=== PATIENT | female | born 1950 | race Caucasian/White ===

== ENCOUNTER 2022-12-11 14:24 | Outpatient (CLI) | payer OTHER, SELFPAY ==
--- NOTE | 2022-12-23 12:48 | ONC.NURNOTE ---
Received referral from PCP for thrombocytopenia. Reviewed with collateral specialist after confirming that PCP has no other labs between 2021 and 12/11/2022. Per Dr. Mehta patient will need to have CBC with peripheral smear and splenic ultrasound. LM with clinic to have these ordered, once they are scheduled publications writer will put patient on hematology schedule.
== END 2022-12-11 14:25 | disposition home or self-care (01) ==
PROVIDERS: PCP Physician Assistant Medical; Visit Provider Physician Assistant Medical
DX: E66.09 Other obesity due to excess calories (principal); M16.11 Unilateral primary osteoarthritis, right hip; R79.89 Other specified abnormal findings of blood chemistry; D69.6 Thrombocytopenia, unspecified; E67.3 Hypervitaminosis D; M17.0 Bilateral primary osteoarthritis of knee
CPT/HCPCS: 80053; 82306; 82607; 84439; 84443

== ENCOUNTER 2023-01-15 13:36 | Outpatient (CLI) | payer OTHER, SELFPAY ==
--- NOTE | 2023-01-15 14:00 | CRLHL7_ITS ---
For Patients: As a result of the Century Cures Act, medical imaging exams and procedure reports are released immediately into your electronic medical record. You may view this report before your referring provider. If you have questions, please contact your health care provider. Indication: Thrombocytopenia. Technique: Ultrasound examination of the spleen is performed using a sector scanner. Comparison: None available Findings: Spleen is normal in size and appearance. It measures 9.9 x 4.7 x 9.8 centimeters with no sign of any mass. There is no sign of ascites. Impression: Normal size and appearance of the spleen. Dictated by Yordy Cazares MD @ 01/19/2023 11:08:18 AM (Electronically Signed)
== END 2023-01-15 13:37 | disposition home or self-care (01) ==
LOC: US 13:37
PROVIDERS: PCP Physician Assistant Medical; Visit Provider Physician Assistant Medical
DX: D69.6 Thrombocytopenia, unspecified (principal)
CPT/HCPCS: 76705

== ENCOUNTER 2023-04-09 09:45 | Outpatient (CLI) | payer OTHER, SELFPAY ==
[2023-04-09 09:54] VITALS: BP 127/70; PULSE 57; RESP 16; TEMP 36.6; O2SAT 96; BMI 37.9
[2023-04-09 10:25] VITALS: BP 97/59; PULSE 55; RESP 16; O2SAT 92
--- NOTE | 2023-04-09 10:30 | W.ANESCHARGE ---
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
[2023-04-09 10:36] VITALS: BP 122/79; PULSE 55; RESP 16; O2SAT 93
[2023-04-09 10:38] LABS: Basophils Absolute Auto 0.01 K/uL (0.00-0.30); Basophils Percent Auto 0.2 % (0.0-3.0); Eosinophils Absolute Auto 0.12 K/uL (0.00-0.50); Eosinophils Percent Auto 2.6 % (0.0-7.0); Hematocrit 39.7 % (33.0-51.0); Hemoglobin* 12.5 gm/dL (12.0-16.0); Immature Reticulocyte Fraction 5.9 % (3.0-15.9); Lymphocytes Absolute Auto 1.05 K/uL (0.90-2.90); Lymphocytes Percent Auto 22.8 % (20-44); Mean Corpuscular HGB Conc 32 gm/dL (32-36); Mean Corpuscular Hemoglobin 29 pg (26-34); Mean Corpuscular Volume 91 fL (80-100); Monocytes Percent Auto 8.3 % (0.0-11.0); Neutrophils Absolute Auto 3.04 K/uL (1.7-7.0); Neutrophils Percent Auto 66.1 % (42.0-72.0); RDW Coefficient of Variation % 15.2 % (11.5-15.5); Red Blood Count 4.38 m/uL (4.00-5.20); Reticulocyte Hemoglobin Equivi 29.7 pg (29.0-35.0); Reticulocyte Percent 1.9 % (0.5-2.0); Reticulocytes Absolute 0.08 # (0.03-0.08)
[2023-04-09 10:43] LABS: Platelet Count* 45 K/uL (140-440); Slide Review Reflex No
--- NOTE | 2023-04-09 10:47 | W.ANESCHARGE ---
Anesthesia Charges Start Date/Time Anesthesia Start Date: 04/09/23 Anesthesia Start Time: 10:08 Stop Date/Time Anesthesia Stop Date: 04/09/23 Anesthesia Stop Time: 10:26 Summary Extremes of Age - Over 70 or under 1: MDA
[2023-04-09 10:51] VITALS: BP 145/82; PULSE 49; RESP 16; O2SAT 95
== END 2023-04-09 10:57 | disposition home or self-care (01) ==
LOC: OP CLINIC 09:45
PROVIDERS: PCP Physician Assistant Medical; Visit Provider Internal Medicine Hematology & Oncology
DX: D69.6 Thrombocytopenia, unspecified (principal)
CPT/HCPCS: 01112; 36415; 38222; 85025; 85045; 88264; 88305; 88313; 88341; 88342; 88360; 99100; J1644; J2001; J2704

== ENCOUNTER 2023-05-04 11:30 | Outpatient (RCR) | payer OTHER, SELFPAY ==
--- NOTE | 2023-03-01 09:35 | PT.OPEX ---
PT [place] Out[facility] Eval PT [facility] Outpatient Eval Start: 03/01/23 08:42 Freq: Status: Active Protocol: Document 03/01/23 09:21 ASHELY (Rec: 03/01/23 09:35 KLV [id number]) E-signed By Ashly Diop, PT Physical Therapy Outpatient Evaluation Insurance Information Recert Due Date 05/26/23 Insurance Information/Comments Ismael Flores Medical Diagnosis Pre and post operative right ABRAHAM DOS 03/08/23 Treating Diagnosis Right hip pain, limited hip ROM, generalized LE weakness, antalgic gait Referring MD Lewis Subjective Subjective Marissa reports to PT with gradual and insidious onset of right hip pain. Started with B leg pain and low back pain which then localized to right hip pain. X-rays indicated significant OA of right hip. She has started using a SEC this winter d/t the severity of pain. Denies falls but having difficulty walking, standing, getting in/out of car, sleeping. She is scheduled to have R ABRAHAM by Dr. Lewis. This is her first joint replacement. She lives in a 1 level home ( with basement however does not use basement). Ramp to enter home. 2 daughters currently live with her and are able to assist as needed. She has a walk-in shower with grab bars and bench as well as toilet jewelry sorter. Has a 4WW to use post-surgery. She does not drive. PMH: insomnia, osteoporosis, obesity, thrombocytopenia Pain Comments Date of Last Physician Visit 01/18/23 Current Work Status Retired Precautions Therapy Limitations/Systems Review Not Limited Objective Other/Pertinent Objective Gait: initially utilizing SEC in R UE, Limited stance time R LE, decreased stride length R LE Diffuse groin pain R SL balance: unable R, 3-4 sec L SLR: unable d/t pain Dermatome: intact to light touch throughout B LE Limited hip PROM all directions: empty end feel d/t pain Functional Test Performed & Score LEFS pre-operative: Assessment Assessment/Impression Marissa is a 73 year old female presenting to PT for preparation of upcoming R ABRAHAM DOS 03/08/23 d/t end stage OA. Session focused on education of anterior hip precautions, post-operative fall prevention precautions, transfers, gait with AD, post-operative exercises. She is able to verbalize precautions and demonstrated independence with exercises, gait. She is appropriate to proceed with surgery at this time. Primary Functional Limitations Walking, standing, sleeping, car transfers Plan of Care Rehabilitation Potential Good Physical Therapy Goals By end of session today, patient will...goals MET Demonstrate appropriate gait pattern with FWW to utilize post surgery for optimal safety when ambulating Demonstrate ability to negotiate stairs using appropriate stair pattern post surgery for optimal safety when at home and in community Verbalize understanding of most appropriate home set up including needed equipment for optimal safety and recovery post surgery Be independent in HEP program to show ability to perform appropriate exercises post surgery Treatment Plan/Direct Interventions Gait Training,Ice/Cold/ Vasopneumatic,Joint Mobilization,Manual Therapy, Neuromuscular Re-ed,Self-Care/ Home Management,Therapeutic Activities,Therapeutic Exercises Frequency/Duration Re-evaluate post-operatively Patient Will Be Discharged From Therapy Completion of LTG(s), Independent w/HEP, Independently Progressing Evaluation Billing Untimed Code Treatment Minutes 15 Complexity Low Certification Information Initial Certification Date 03/01/23 Ending Certification Date 05/26/23 Provider Signature Shows Agreement With POC & Medical Necessity Physician Signature & Date Requested Please Sign/Date Here Physician Comment/Change : Physician NPI Number #
== END 2023-09-01 23:59 | disposition home or self-care (01) ==
PROVIDERS: PCP Physician Assistant Medical; Referring Provider Physician Assistant Medical; Visit Provider Orthopaedic Surgery Sports Medicine
DX: M16.11 Unilateral primary osteoarthritis, right hip (principal); Z96.641 Presence of right artificial hip joint; Z51.89 Encounter for other specified aftercare
CPT/HCPCS: 97161; 97535; 99215; G0463

== ENCOUNTER 2023-06-14 14:38 | Outpatient (CLI) | payer OTHER, SELFPAY ==
--- NOTE | 2023-06-14 15:00 | US_ITS ---
Patient: DEE Muñoz FIELD Facility:?[facility] Patient ID:?[id number] Site Patient ID:?[id number]. Site :?[id number] Study:?US-Abdomen limited-06/14/2023 3:18:35 PM Ordering Physician:Hailey Pedraza Final Report: INDICATION: Liver cirrhosis COMPARISON: none TECHNIQUE: Real time holt scale imaging and color Doppler analysis was performed of the right upper quadrant. FINDINGS: No intrahepatic mass is present. The liver is not enlarged. There is a normal appearance of the hepatic IVC and proximal abdominal aorta. There is no evidence of ascites. The gallbladder is of normal size and there is no evidence of intraluminal stones or sludge. The gallbladder wall measures 1.7 mm in thickness. The common bile duct is of normal size and measures 2.6 mm in diameter at the level of the mark hepatis. The pancreas appears normal. There is no evidence of a stone or hydronephrosis within the right kidney. The right kidney measures 11.0 cm in length. IMPRESSION: No intrahepatic mass or ascites. Remainder unremarkable. Dictated by Clay Butler MD @ 06/14/2023 3:42:09 PM Signed by:?Clay Butler MD @06/14/2023 3:42:09 PM (Electronic Signature)
== END 2023-06-14 14:39 | disposition home or self-care (01) ==
PROVIDERS: PCP Physician Assistant Medical; Visit Provider Internal Medicine Hematology & Oncology
DX: K74.60 Unspecified cirrhosis of liver (principal)
CPT/HCPCS: 76705; 82306

== ENCOUNTER 2023-06-22 08:00 | Outpatient (RCR) | payer OTHER, SELFPAY ==
[2023-01-19 12:11] LABS: Basophils Absolute Auto 0.01 K/uL (0.00-0.30); Basophils Percent Auto 0.2 % (0.0-3.0); Eosinophils Absolute Auto 0.12 K/uL (0.00-0.50); Eosinophils Percent Auto 2.5 % (0.0-7.0); Hematocrit 37.6 % (33.0-51.0); Hemoglobin* 11.6 gm/dL (12.0-16.0); Immature Reticulocyte Fraction 3.6 % (3.0-15.9); Lymphocytes Absolute Auto 1.25 K/uL (0.90-2.90); Lymphocytes Percent Auto 26.3 % (20-44); Mean Corpuscular HGB Conc 31 gm/dL (32-36); Mean Corpuscular Hemoglobin 29 pg (26-34); Mean Corpuscular Volume 94 fL (80-100); Monocytes Percent Auto 7.4 % (0.0-11.0); Neutrophils Absolute Auto 3.03 K/uL (1.7-7.0); Neutrophils Percent Auto 63.6 % (42.0-72.0); Platelet Count* 54 K/uL (140-440); RDW Coefficient of Variation % 12.3 % (11.5-15.5); Reticulocyte Hemoglobin Equivi 27.7 pg (29.0-35.0); Reticulocyte Percent 0.7 % (0.5-2.0); Reticulocytes Absolute 0.03 # (0.03-0.08); White Blood Count* 4.76 K/uL (4.50-11.00)
[2023-01-19 12:20] LABS: Slide Review Reflex No
[2023-01-19 12:22] LABS: Albumin* 4.3 g/dL (3.3-5.0); Chloride* 103 mmol/L (96-114)
[2023-01-19 12:23] LABS: Potassium* 4.7 mmol/L (3.6-5.1); Sodium* 137 mmol/L (135-149)
[2023-01-19 12:25] LABS: Alkaline Phosphatase* 77 U/L (40-150); Anion Gap 6 mEq/L (7-15); Aspartate Amino Transferase* 25 U/L (12-35); Bilirubin Total* 0.5 mg/dL (0.1-1.5); Blood Urea Nitrogen* 15 mg/dL (7-30); Carbon Dioxide* 28 mmol/L (20-32); Creatinine* 0.7 mg/dL (0.5-1.5); Estimated Glomerular Filt Rate 92 ml/min; Lactate Dehydrogenase* 208 U/L (120-246); Total Protein* 7.2 g/dL (6.0-8.3)
[2023-01-19 12:26] LABS: Alanine Aminotransferase* 15 U/L (4-35); Calcium* 9.2 mg/dL (8.4-10.6); Glucose* 90 mg/dL (60-115)
[2023-01-19 12:29] LABS: Iron* 55 ug/dL (37-170)
[2023-01-19 12:38] LABS: Percent Iron Saturation 14 % (20-50); Total Iron Binding Capacity 390 ug/dL (265-497)
[2023-01-19 13:02] LABS: Hepatitis B Surface Antigen* Negative (Negative)
[2023-01-19 13:15] LABS: Vitamin B12* 323 pg/mL (243-894)
[2023-01-19 13:20] LABS: Hepatitis C Virus Antibody* Negative (Negative)
[2023-01-19 13:22] LABS: HIV 1/2/P24 Combo Screen* Negative (Negative)
[2023-01-20 18:54] LABS: Hepatitis B Core Antibodies Negative (Negative)
[2023-01-21 05:57] LABS: Copper, Serum/Plasma 124.5 ug/dL (80.0-155.0)
[2023-01-21 07:50] LABS: Folate, Serum 11.2 ng/mL (>=5.9)
[2023-03-02 14:26] LABS: Basophils Absolute Auto 0.01 K/uL (0.00-0.30); Basophils Percent Auto 0.2 % (0.0-3.0); Eosinophils Absolute Auto 0.16 K/uL (0.00-0.50); Eosinophils Percent Auto 2.8 % (0.0-7.0); Hematocrit 36.1 % (33.0-51.0); Hemoglobin* 11.4 gm/dL (12.0-16.0); Immature Granulocytes Abs Auto 0.01 K/uL (0.00-0.30); Immature Granulocytes Pct Auto 0.2 %; Lymphocytes Absolute Auto 1.17 K/uL (0.90-2.90); Lymphocytes Percent Auto 20.4 % (20-44); Mean Corpuscular HGB Conc 32 gm/dL (32-36); Mean Corpuscular Hemoglobin 28 pg (26-34); Mean Corpuscular Volume 89 fL (80-100); Monocytes Percent Auto 6.4 % (0.0-11.0); Neutrophils Absolute Auto 4.02 K/uL (1.7-7.0); RDW Coefficient of Variation % 12.9 % (11.5-15.5); Red Blood Count 4.04 m/uL (4.00-5.20); White Blood Count* 5.74 K/uL (4.50-11.00)
[2023-03-02 14:50] LABS: Platelet Count* 45 K/uL (140-440); Slide Review Reflex Yes
[2023-03-02 14:51] LABS: Slide Review Acceptable Review (Acceptable)
[2023-04-05 09:43] LABS: Basophils Absolute Auto 0.02 K/uL (0.00-0.30); Basophils Percent Auto 0.4 % (0.0-3.0); Eosinophils Absolute Auto 0.14 K/uL (0.00-0.50); Eosinophils Percent Auto 2.8 % (0.0-7.0); Hematocrit 37.2 % (33.0-51.0); Hemoglobin* 11.9 gm/dL (12.0-16.0); Lymphocytes Absolute Auto 1.07 K/uL (0.90-2.90); Lymphocytes Percent Auto 21.5 % (20-44); Mean Corpuscular HGB Conc 32 gm/dL (32-36); Mean Corpuscular Hemoglobin 29 pg (26-34); Mean Corpuscular Volume 90 fL (80-100); Monocytes Percent Auto 8.4 % (0.0-11.0); Neutrophils Absolute Auto 3.33 K/uL (1.7-7.0); Neutrophils Percent Auto 66.9 % (42.0-72.0); RDW Coefficient of Variation % 14.8 % (11.5-15.5); Red Blood Count 4.15 m/uL (4.00-5.20); White Blood Count* 4.98 K/uL (4.50-11.00)
[2023-04-05 09:55] LABS: Platelet Count* 34 K/uL (140-440); Slide Review Reflex No
[2023-04-05] MEDS: CYANOCOBALAMIN 1,000 MCG/ML inj 1000 MCG IM (10:53)
[2023-04-16 11:39] VITALS: BP 102/66; PULSE 79; RESP 16; TEMP 36.7; O2SAT 95
[2023-04-16] MEDS: CYANOCOBALAMIN 1,000 MCG/ML inj 1000 MCG IM (11:50)
[2023-04-23 13:00] VITALS: BP 146/78; PULSE 60; RESP 16; TEMP 36.2; O2SAT 96
[2023-04-23] MEDS: CYANOCOBALAMIN 1,000 MCG/ML inj 1000 MCG IM (13:13)
[2023-04-30 12:46] VITALS: BP 103/69; PULSE 75; RESP 16; TEMP 37; O2SAT 95
[2023-04-30] MEDS: CYANOCOBALAMIN 1,000 MCG/ML inj 1000 MCG IM (12:57)
[2023-05-04 10:45] LABS: Basophils Percent Auto 0.2 % (0.0-3.0); Eosinophils Percent Auto 2.5 % (0.0-7.0); Hematocrit 38.5 % (33.0-51.0); Hemoglobin* 12.4 gm/dL (12.0-16.0); Lymphocytes Percent Auto 25.1 % (20-44); Mean Corpuscular HGB Conc 32 gm/dL (32-36); Mean Corpuscular Hemoglobin 29 pg (26-34); Mean Corpuscular Volume 91 fL (80-100); Monocytes Percent Auto 7.3 % (0.0-11.0); Neutrophils Percent Auto 64.9 % (42.0-72.0); RDW Coefficient of Variation % 14.4 % (11.5-15.5); Red Blood Count 4.24 m/uL (4.00-5.20); White Blood Count* 4.38 K/uL (4.50-11.00)
[2023-05-04 11:08] LABS: Platelet Count* 42 K/uL (140-440); Slide Review Reflex Yes
[2023-05-04 11:09] LABS: Slide Review Acceptable Review (Acceptable)
[2023-05-04] MEDS: CYANOCOBALAMIN 1,000 MCG/ML inj 1000 MCG IM (11:56)
--- NOTE | 2023-05-14 11:55 | URNOTE ---
[employer]([id number]) has been approved by [facility], 05/20/2023-02/15/2024. Approval #[id number]
[2023-05-20 08:45] VITALS: BP 122/80; PULSE 53; RESP 16; TEMP 36.7; O2SAT 96
[2023-05-20 08:47] LABS: Basophils Absolute Auto 0.01 K/uL (0.00-0.30); Basophils Percent Auto 0.2 % (0.0-3.0); Eosinophils Percent Auto 3.3 % (0.0-7.0); Hematocrit 40.1 % (33.0-51.0); Hemoglobin* 12.8 gm/dL (12.0-16.0); Immature Granulocytes Abs Auto 0.01 K/uL (0.00-0.30); Immature Granulocytes Pct Auto 0.2 %; Lymphocytes Percent Auto 19.8 % (20-44); Mean Corpuscular HGB Conc 32 gm/dL (32-36); Mean Corpuscular Hemoglobin 29 pg (26-34); Mean Corpuscular Volume 91 fL (80-100); Monocytes Percent Auto 6.9 % (0.0-11.0); Neutrophils Absolute Auto 4.27 K/uL (1.7-7.0); Neutrophils Percent Auto 69.6 % (42.0-72.0); Platelet Count* 58 K/uL (140-440); RDW Coefficient of Variation % 13.6 % (11.5-15.5); Red Blood Count 4.41 m/uL (4.00-5.20); White Blood Count* 6.12 K/uL (4.50-11.00)
[2023-05-20 08:54] LABS: Slide Review Reflex No
[2023-05-20] MEDS: SODIUM CHLORIDE 0.9 % (FLUSH) 10 ML SYRINGE IVF ×2 (09:30→14:55)
[2023-05-20] MEDS: 5 % DEXTROSE 250 ML IV (09:30)
[2023-05-20] MEDS: ACETAMINOPHEN 325 MG TABLET 650 MG PO (09:45)
[2023-05-20] MEDS: METHYLPREDNISOLONE SOD SUCC 40 MG/ML IVP (09:46)
[2023-05-20 10:26] VITALS: BP 117/78; PULSE 57; O2SAT 95
[2023-05-20] MEDS: diphenhydrAMINE 25 MG CAPSULE PO (10:30)
--- NOTE | 2023-05-20 11:35 | PC.NURSE ---
Pt present at [facility] for IVIG infusion. Premeds ordered per Corazon Cabrera APRN CLINICAL OPERATIONS SPECIALIST. Tylenol given orally. RN reviewed compatibilities on Clinical Pharmacology and noted incompatibilities. Stopped D5W, flushed with 10 cc NS and gave SoluMedrol IV push. Flushed with 10 cc NS. Started pushing IV Benadryl and noted precipitate. Stopped and pulled back. Discussed with Corazon Cabrera APRN and gave oral dose of Benadryl. Waited ~30 minutes before starting IVIG. With the 2nd dose on 05/20/2023, will give IV SoluMedrol and oral Tylenol & Benadryl.
[2023-05-21 08:35] VITALS: BP 130/83; PULSE 55; RESP 16; TEMP 36.8; O2SAT 96
[2023-05-21 09:04] LABS: Hematocrit 37.3 % (33.0-51.0); Mean Corpuscular HGB Conc 32 gm/dL (32-36); Mean Corpuscular Hemoglobin 29 pg (26-34); Mean Corpuscular Volume 91 fL (80-100); Platelet Count* 81 K/uL (140-440); Red Blood Count 4.12 m/uL (4.00-5.20)
[2023-05-21 09:12] LABS: Slide Review Reflex No
[2023-05-21] MEDS: ACETAMINOPHEN 325 MG TABLET 650 MG PO (09:29)
[2023-05-21] MEDS: diphenhydrAMINE 25 MG CAPSULE PO (09:29)
[2023-05-21] MEDS: SODIUM CHLORIDE 0.9 % (FLUSH) 10 ML SYRINGE IVF (09:30)
[2023-05-21] MEDS: 5 % DEXTROSE 250 ML IV (09:35)
[2023-05-21] MEDS: METHYLPREDNISOLONE SOD SUCC 40 MG/ML IVP (09:39)
--- NOTE | 2023-05-21 14:34 | PC.NURSE ---
Addendum entered by Tonie Velásquez RN 05/24/23 14:52: Spoke to orthopedic clinic-per the orthopedic clinic pt is scheduled for 06/23/23, pt was never scheduled for surgery on 05/24/23. Addendum entered by Tonie Velásquez RN 05/21/23 16:02: Aquiles ALBARADO pharmacy clinical specialist of [place]'s office called back stating orthopedics cancelled pt's surgery due to platelets of 81,000 this am. Aquiles will call pt and speak to [place] on Wednesday and contact the orthopedic office. Original Note: Pt present at [facility] for day 2 of IVIG infusion in preparation for surgery on Wednesday. Pt mentioned that she hadn't heard any check in time details from the surgery department. Reviewed pt's calendar and noted that her surgery is scheduled for 06/23/2023 NOT 05/24/2023 as all understood to be the plan. RN called the ortho department and got an on-call service as that clinic is closed for the day. RN then called to speak with a covering provider for Maria Fernanda Ríos PA-C as she is out. Transferred to [facility] and was told that there were no providers in clinic at this time. Spoke with PER Kwan the pharmacy clinical specialist, who took all of the above information. She will attempt to reach surgery to investigate further. Pt left [facility] as her daughter was here to pick her up. Will follow.
[2023-06-07 13:21] LABS: Basophils Percent Auto 0.2 % (0.0-3.0); Eosinophils Percent Auto 1.2 % (0.0-7.0); Hematocrit 39.7 % (33.0-51.0); Hemoglobin* 12.6 gm/dL (12.0-16.0); Lymphocytes Percent Auto 26.1 % (20-44); Mean Corpuscular HGB Conc 32 gm/dL (32-36); Mean Corpuscular Hemoglobin 29 pg (26-34); Mean Corpuscular Volume 92 fL (80-100); Monocytes Percent Auto 7.4 % (0.0-11.0); Neutrophils Percent Auto 65.1 % (42.0-72.0); Platelet Count* 121 K/uL (140-440); RDW Coefficient of Variation % 13.4 % (11.5-15.5); Red Blood Count 4.34 m/uL (4.00-5.20); White Blood Count* 4.03 K/uL (4.50-11.00)
[2023-06-07 13:29] LABS: Slide Review Reflex No
[2023-06-07] MEDS: CYANOCOBALAMIN 1,000 MCG/ML inj 1000 MCG IM (14:23)
[2023-06-18 09:17] LABS: Basophils Percent Auto 0.3 % (0.0-3.0); Eosinophils Percent Auto 2.7 % (0.0-7.0); Hematocrit 38.1 % (33.0-51.0); Hemoglobin* 12.4 gm/dL (12.0-16.0); Lymphocytes Percent Auto 30.6 % (20-44); Mean Corpuscular HGB Conc 33 gm/dL (32-36); Mean Corpuscular Hemoglobin 30 pg (26-34); Mean Corpuscular Volume 91 fL (80-100); Monocytes Percent Auto 8.4 % (0.0-11.0); Platelet Count* 99 K/uL (140-440); RDW Coefficient of Variation % 13.2 % (11.5-15.5); Red Blood Count 4.19 m/uL (4.00-5.20); White Blood Count* 3.33 K/uL (4.50-11.00)
[2023-06-18 09:29] LABS: Slide Review Reflex No
--- NOTE | 2023-06-18 11:42 | ONC.NURNOTE ---
Ortho clinic called and alerted to patients platelets being 99,000. MD wanted them at 100,000 so not sure if patient needs transfusion or not. Nurse stated he's out for day but will address on Wednesday. Patient also notified Will let Dr. Jo know on WednesdayJune 20 Surgery scheduled for June 22
[2023-06-22 07:44] VITALS: BP 102/70; PULSE 66; RESP 16; TEMP 36.5; O2SAT 97
[2023-06-22 08:14] VITALS: BP 102/70; PULSE 66; RESP 16; TEMP 36.3; O2SAT 97
[2023-06-22 08:33] VITALS: BP 109/73; PULSE 59; RESP 16; TEMP 36.4; O2SAT 95
[2023-06-22 09:18] VITALS: BP 108/70; PULSE 63; RESP 18; TEMP 36.4; O2SAT 94
[2023-06-22 10:38] VITALS: BP 118/80; PULSE 61; RESP 16; TEMP 36.5; O2SAT 95
[2023-06-22 11:06] VITALS: BP 121/79; PULSE 61; RESP 16; TEMP 36.4; O2SAT 96
[2023-06-22 12:42] LABS: Platelet Count* 110 K/uL (140-440)
== END 2023-07-18 23:59 | disposition home or self-care (01) ==
LOC: CCIC 08:00
PROVIDERS: Clinical Nurse Specialist; PCP Physician Assistant Medical; Referring Provider Physician Assistant Medical; Visit Provider Internal Medicine Hematology & Oncology
DX: D69.6 Thrombocytopenia, unspecified (principal)
CPT/HCPCS: 36415; 36430; 80053; 82525; 82607; 82728; 82746; 83540; 83550; 83615; 85025; 85027; 85045; 85049; 86703; 86704; 86803; 86850; 86900; 86901; 87340; 96365; 96366; 96372; 96376; 99202; 99204; 99213; 99214; G0463; A9270; J1200; J1459; J2919; J3420; J7050; P9073

== ENCOUNTER 2023-06-23 06:01 | Day surgery (SDC) | payer OTHER, SELFPAY ==
[2023-06-23] VITALS (25 sets, daily range): BP systolic 94–136; BP diastolic 56–95; PULSE 66–82; RESP 14–23; TEMP 35.9–36.7; O2SAT 92–100; BMI 35.9
[2023-06-23] MEDS: ACETAMINOPHEN 500 MG TABLET 1000 MG PO ×3 (06:30→19:09)
[2023-06-23] MEDS: OXYCODONE (CR) 10 MG TAB.ER.12H PO (06:30)
[2023-06-23] MEDS: LACTATED RINGERS 1000 ML 1,000 ML 100 ML IV (06:45)
--- NOTE | 2023-06-23 06:50 | W.PM.H&PU ---
History & Physical Update History & Physical Update H&P Updates: Platelet count measured yesterday (06/22/2023) of 110,000 is much improved from the 43,000 count a few months ago. She feels herself. No other changes.
--- NOTE | 2023-06-23 06:53 | XR_ITS ---
Patient: DEE Muñoz FIELD Facility:?[facility] Patient ID:?[id number] Site Patient ID:?[id number]. Site :?[id number] Study:?XRay-Hip Right post op-06/23/2023 10:17:49 AM Ordering Physician:VERA Final Report: INDICATION: Post right hip arthroplasty. TECHNIQUE: AP view of the pelvis as well as AP and lateral projections of the right hip. COMPARISON: : 06/21/2023 FINDINGS: Immediate postop change of right total hip arthroplasty. Prosthetic components well-seated and aligned. IMPRESSION: : Immediate postop right total hip arthroplasty without evidence of complication. Dictated by Javier Dawkins MD @ 06/24/2023 9:00:24 AM Signed by:?Javier Dawkins MD @06/24/2023 9:00:24 AM (Electronic Signature)
--- NOTE | 2023-06-23 06:58 | SUR.PREOP ---
TIME?OUT:?0700 PT/RN/MDA?VERIFICATION?OF?SURGICAL?SITE,?PROCEDURE,?AND?CONSENT OBTAINED?PRIOR?TO?INVASIVE?PROCEDURE.
[2023-06-23] MEDS: MIDAZOLAM HCL 1 MG/ML inj IVP (07:01)
[2023-06-23] MEDS: fentaNYL 100 MCG/2 ML inj IVP (07:01)
--- NOTE | 2023-06-23 07:15 | XR_ITS ---
Patient: DEE Muñoz FIELD Facility:?[facility] Patient ID:?[id number] Site Patient ID:?[id number]. Site :?1950 Study:?XRay-Hip Right With Luz-06/23/2023 9:17:08 AM Ordering Physician:Domi Final Report: Indication: Right ABRAHAM. Intraoperative fluoroscopy Technique: Intraoperative fluoroscopy. One image saved. Fluoro time: 52 seconds. Comparison: None. Findings/Impression: Image shows placement of a right hip arthroplasty in anatomic alignment. Dictated by Hang Argueta MD @ 06/24/2023 6:36:17 AM Signed by:?Hang Argueta MD @06/24/2023 6:36:17 AM (Electronic Signature)
[2023-06-23] MEDS: CEFAZOLIN 2 GM in 0.9 % SODIUM CHLORIDE Mini-bag 100 ML IVPB ×3 (07:28→21:22)
[2023-06-23] MEDS: TRANEXAMIC ACID 100 MG/ML INJ 1000 MG IV (07:38)
--- NOTE | 2023-06-23 09:12 | PM.ORPRC ---
Procedure Note Date of procedure: 06/23/23 Procedure: PREOPERATIVE DIAGNOSIS: 1. Right hip osteoarthritis, severe, primary POSTOPERATIVE DIAGNOSIS: 1. Right hip osteoarthritis, severe, primary PROCEDURE: 1. Right total hip arthroplasty-anterior approach 2. 66637 - intraoperative fluoroscopy up to 1 hour. SURGEON: Keaton Lewis MD. THERMAL INTELLIGENCE ANALYST: Jose Torres PA-C; ROSARIO Kruger - Of note, a skilled diet assistant was critical for this case to aid in patient positioning, tissue retraction, limb manipulation/positioning, and closure. ANESTHESIA: General endotracheal anesthetic EBL: 500 mL IMPLANTS: DePuy J&J uncemented total hip [place] cup size 52, hole eliminator, +4 neutral liner Actis stem, standard offset, size 6 +5 mm ceramic 36 mm head COMPLICATIONS: None evident INDICATIONS: The patient is a pleasant 73-year-old female who has experienced severe right hip pain and difficulty bearing weight. Workup included x-rays which revealed severe osteoarthrosis in the hip. Given the deformity, the dysfunction, and the pain, as well as the failure of nonoperative management, recommendation was made for surgery. FINDINGS: Full-thickness chondral loss diffusely throughout the femoral head and superior/central acetabulum. Large effusion upon entering the joint. Significant osteophytosis around the perimeter of the femoral head/neck junction and acetabulum. DESCRIPTION OF PROCEDURE: Following a thorough discussion of risks, benefits, and alternatives consent was obtained and the right hip was marked. The patient was brought to the operating room and placed supine on the operating table. Induction of anesthesia was undertaken. 2 g IV Ancef and 1 g tranexamic acid was administered within 1 hr of incision preoperatively. Proper time-out was performed identifying proper patient, site, procedure. The operative extremity was prepped and draped in the appropriate sterile fashion using ChloraPrep after the patient was positioned on the Bertrand table with head in neutral alignment and all bony prominences well padded. C-arm fluoroscopic imaging was utilized to confirm proper pelvis rotation and position, and to get true AP films of both the contralateral left, and the affected right hip. This is for comparison. A longitudinal incision was made starting approximately 1 cm distal to the ASIS, and 3-4 cm lateral. The incision was extended distally aiming toward the lateral border the patella. Sharp incision through skin and bovie cautery through the subcutaneous tissue allowed identification of the TFL fascia. This was sharply divided, and the fascia bluntly released from the muscle fibers as we dissected medial. Upon coming to the medial border, we were able to retract the TFL laterally, and penetrated the deeper fascia and identify the crossing circumflex vessels. These were ligated/cauterized. The rectus was elevated from the capsule, and retractors placed laterally and medially along the femoral neck to help with visualization of the capsule. We then performed an inverted T capsulotomy. The capsule was tagged for later repair. Retractors were placed inside the capsule. The femoral neck was visualized after releasing medially down to the lesser trochanter, along the saddle laterally, and up onto the acetabulum. The femoral neck cut was made in line with our preoperative templating. The head was removed in a single piece, and sized. We turned our attention to acetabular preparation. Initially, the labrum was resected from around the perimeter, the pulvinar was excised, allowing us to visualize the false wall. We started the reaming with a 43 mm reamer. This was medialized down to the true wall. We then enlarged our reamers sequentially up to one size less than the selected cup size. We trialed at the same size and found it to have an excellent fit. The selected cup was then opened, inserted, and impacted in line with the goal of 40? of abduction, and 20-25? of anteversion. This was confirmed on C-arm fluoroscopic imaging to be in the appropriate/goal position. Once the cup was placed we placed a hole eliminator and a liner consistent with preop planning. Attention was turned to the femoral preparation. The limb was extended, externally rotated, and adducted. The posteromedial capsule was released, as retractors were placed allowing excellent access to the proximal femur. Initially a dust box tender was followed by canal finder followed by various broaches. We broached sequentially up to the size noted above, found it to have excellent rotational control, and trialing various heads and necks, revealed that appropriate neck offset, and the above noted head size provided the greatest stability, and episcopalian of length, and offset. C-arm fluoroscopic imaging confirmed position of the stem, as well as leg lengths, which were compared with the pre procedure all fluoroscopic images. Trial implants were removed, the real femoral stem inserted, as was the appropriate head. After reducing, the leg was placed through range of motion and stability was confirmed anterior, posterior, and lateral. A 3 min Betadine soak was then performed, and thorough irrigation with normal saline followed. Closure of the capsule was performed with #1 PDS. Bleeding was confirmed to be controlled at this stage, and the TFL fascia was closed with #0 strata fix. Subcutaneous, and subcuticular closure was performed with 2-0 Vicryl and 4-0 Monocryl, respectively. Dressings were applied, and the patient was awoken from anesthesia and transferred the PACU in stable condition. A skilled diet assistant was critical for this case to aid in patient positioning, tissue retraction, acetabular and proximal femoral exposure, limb manipulation/positioning, dislocation/relocation, patient safety, and closure. PLAN: 1. Weight bear as tolerated operative extremity. 2. 23 hr perioperative antibiotics. 3. Ice. 4. PT/OT consults for ambulation assistance/mobility education. 5. Social work consult for discharge planning. 6. DVT prophylaxis with at SCDs and likely chemoprophylaxis but will discuss this with the hospitalist given thrombocytopenia (110,000 platelets as of labs from yesterday 06/22/2023).
--- NOTE | 2023-06-23 09:40 | W.PM.NB ---
Nerve Block Nerve Block Time Seen by Provider: 07:05 Date Seen: 06/23/23 Type of block requested by surgeon for post-operative analgesia: SIERRA/LFCN Side: right Time out performed: Yes Verification of patient name: Yes Verification of date of : Yes Site marking: site marked Name of person performing procedure: Milton Continuous monitoring Was continuous monitoring of O2 sat, B/P, potline monitor, recorded every 15 minutes?: Yes Procedure Checklist: sterile prep, needles and gloves Ultrasound guided. Images saved: Yes Medications given in 5ml increments after negative aspiration: Ropivicaine %: 0.5 mL: 30 Needle gauge: 20 Decadron (mg): 10 Precedex (mcg): 25 Patient tolerated procedure well: Yes Additional comments: Needle noted below psoas tendon needle noted adjacent to LFCN Block Charges Block Charge (with Pro Fee): Other Periph Nerve Block Use of Ultrasound Machine for Block: Yes- US Guidance/pain block
--- NOTE | 2023-06-23 09:40 | W.ANESCHARGE ---
Anesthesia Charges Start Date/Time Anesthesia Start Date: 06/23/23 Anesthesia Start Time: 07:11 Stop Date/Time Anesthesia Stop Date: 06/23/23 Anesthesia Stop Time: 10:01 Summary Extremes of Age - Over 70 or under 1: MDA
--- NOTE | 2023-06-23 10:08 | W.ANESCHARGE ---
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
--- NOTE | 2023-06-23 10:27 | SUR.PHASEI ---
Patient meets anesthesia discharge criteria from PACU
--- NOTE | 2023-06-23 10:34 | SUR.PHASEI ---
patient has shakes, offered medication to help with the shaking. Patient declined twice.
--- NOTE | 2023-06-23 15:12 | PC.NURSE ---
[End of Shift RN Note]: Patient arrived to unit post-operatively approximately at 10:45; patient had R) total hip replacement. Patient A&OX3; no cognitive deficits noted. Patient vitally stable post-operatively and pain adequately managed with scheduled medications per MAR. Patient has not voided yet post-operatively but has had poor appetite and has not had much PO fluid intake. Patient had jell-o to eat and tolerated well; declines tray from kitchen at this time. CMS intact to LLE. R) hip incision dressing C/D/I. Patient got out of bed with PT which pt tolerated well. Patient recovering as anticipated; no issues or concerns noted. Will continue to implement ongoing plan of care.
--- NOTE | 2023-06-23 15:31 | P.IMCN_ITS ---
Date of Consult Patient: [facility] Patient Consult date: 06/23/23 Requesting Physician: Orthopedics Primary Care Provider: Maria Fernanda Ríos PA-C Consult Narrative Reason for consult: Medical management Narrative: Marissa Sprague is a 73 year old female past medical history significant for chronic ITP, anemia, anxiety, depression, B12 deficiency, obesity, osteoarthritis is POD#0 s/p right ABRAHAM. There have been no perioperative complications or nursing concerns reported. Estimated total blood loss documented as 500 ml. Updated and reviewed the active medical problems, past medical history, past surgical history, social history, allergies and medications in our electronic EMR. Postoperatively, patient reports quite well. Pain is currently well managed. No nausea or vomiting, tolerating orals. Review of Systems Narrative: REVIEW OF SYSTEMS: Complete review of systems performed and negative unless otherwise stated in HPI or below. PFSH [facility] Medical History (Updated 06/23/23 @ 16:35 by Kaitlin Cameron PA-C) Liver cirrhosis ?K74.60 - Unspecified cirrhosis of liver (ICD-10) Anemia ?D64.9 - Anemia, unspecified (ICD-10) B12 deficiency ?E53.8 - Deficiency of other specified B group vitamins (ICD-10) Depression ?F32.A - Depression, unspecified (ICD-10) Thrombocytopenia ?D69.6 - Thrombocytopenia, unspecified (ICD-10) Anxiety with depression ?F41.8 - Other specified anxiety disorders (ICD-10) Arm pain ?M79.603 - Pain in arm, unspecified (ICD-10) Hand pain ?M79.643 - Pain in unspecified hand (ICD-10) Wrist pain ?M25.539 - Pain in unspecified wrist (ICD-10) Social History Narrative: What is your current living situation?: I presently have a place to live Problems where you live: no known problems In the past 12 months, utilities in danger of being shut off: no In past 12 months, lack of transportation kept you from medical appts, meetings, work, or getting things needed for daily living: no In the past 12 mos, have been you worried that your food would run out before you had money to buy more?: never true In the past 12 mos, the food you bought just didn't last and you didn't have money to buy more?: never true Smoking Status: Never smoker How often do you have a drink containing alcohol: never AUDIT-C Alcohol total score: 0 Non-prescribed substance use: denies use Caffeine: Yes How often does anyone, including family, friends and others, physically hurt you : never How often does anyone, including family, friends and others, insult or talk down to you: never How often does anyone, including family, friends and others, threaten you with harm: never How often does anyone, including family, friends and others, scream or curse at you: never Little interest or pleasure in doing things: not at all Feeling down, depressed, or hopeless: not at all Meds Home Medications and Allergies Home Medications Medication Instructions Recorded Confirmed Type calcium carbonate (Calcium 500) 500 mg PO DAILY 12/11/22 06/23/23 History acetaminophen 500 mg tablet 1,000 mg PO Q6H PRN 01/19/23 06/23/23 History (Tylenol Extra Strength) folic acid 1 mg tablet 1 mg PO DAILY 06/23/23 06/23/23 History mecobalamin (vitamin B12) 1,000 1,000 mcg sublingual DAILY 06/23/23 06/23/23 History mcg disintegrating tablet,sublingual trazodone 100 mg tablet 100 mg PO HS PRN insomnia 06/23/23 06/23/23 History Allergies Allergy/AdvReac Type Severity Reaction Status Date / Time No Known Drug Allergies Allergy Verified 06/22/23 08:07 Exam Narrative: Exam Narrative: PHYSICAL EXAM General: Pleasant, conversant, NAD HEENT: Normocephalic, atraumatic, sclera white, EOMI, oral mucosa moist Cardiovascular: RRR, S1S2. No pitting edema Pulmonary: CTA bilaterally without rhonchi, rales, expiratory wheezes. No dyspnea Abdominal: Soft, nondistended, NTTP Neurological: Alert, answering questions appropriately, cranial nerves intact, no focal findings Extremities: No gross joint deformity or swelling. Postoperative dressing in place, dry. Neurovascularly intact Skin: Warm, dry. Const: Vital Signs, click to edit/add: Vital Signs - 24 hr 06/23/23 06:31 06/23/23 07:00 06/23/23 07:05 Temperature 98.1 F Pulse Rate 66 70 68 Respiratory Rate 16 16 16 Blood Pressure 133/84 134/77 119/75 Pulse Oximetry 96 97 99 Oxygen Delivery Me thod Room Air Nasal Cannula Nasal Cannula Oxygen Flow Rate 3 3 06/23/23 09:56 06/23/23 10:00 06/23/23 10:05 Temperature 97.5 F L Pulse Rate 77 75 75 Respiratory Rate 16 14 16 Blood Pressure 136/85 132/77 131/95 H Pulse Oximetry 93 97 99 Oxygen Delivery Me thod Room Air Nasal Cannula Oxygen Flow Rate 3 06/23/23 10:10 06/23/23 10:15 06/23/23 10:20 Temperature Pulse Rate 74 75 77 Respiratory Rate 16 22 16 Blood Pressure 131/95 H 132/95 H 133/75 Pulse Oximetry 99 100 99 Oxygen Delivery Me thod Oxygen Flow Rate 06/23/23 10:25 06/23/23 10:30 06/23/23 10:42 Temperature 98.1 F 96.6 F L Pulse Rate 73 71 82 Respiratory Rate 16 23 14 Blood Pressure 129/72 118/73 128/75 Pulse Oximetry 96 94 93 Oxygen Delivery Me thod Room Air Room Air Room Air Oxygen Flow Rate 06/23/23 10:45 06/23/23 11:00 06/23/23 11:15 Temperature 96.6 F L 96.6 F L 96.6 F L Pulse Rate 74 69 70 Respiratory Rate 15 16 16 Blood Pressure 127/70 113/69 111/70 Pulse Oximetry 95 93 95 Oxygen Delivery Me thod Room Air Room Air Room Air Oxygen Flow Rate 06/23/23 11:30 06/23/23 12:00 06/23/23 12:30 Temperature 96.8 F L 96.9 F L 96.7 F L Pulse Rate 78 81 74 Respiratory Rate 16 16 16 Blood Pressure 111/64 96/63 97/64 Pulse Oximetry 94 94 93 Oxygen Delivery Me thod Room Air Room Air Room Air Oxygen Flow Rate 06/23/23 13:00 06/23/23 14:00 06/23/23 15:00 Temperature 96.8 F L 97.1 F L 97.0 F L Pulse Rate 73 75 73 Respiratory Rate 16 18 18 Blood Pressure 100/67 100/69 94/56 L Pulse Oximetry 93 95 94 Oxygen Delivery Me thod Room Air Room Air Room Air Oxygen Flow Rate Assessment and Plan Assessment and plan (1) Osteoarthritis of right hip: Problem comment: -POD#0 s/p rate ABRAHAM, anterior approach, Dr. Lewis -perioperative management including pain management and anticoagulation per Orthopedic surgery -encourage postoperative pulmonary hygiene -PT OT consults -plan to discharge home with family tomorrow Status: Acute (2) Chronic ITP (idiopathic thrombocytopenia): Problem comment: Platelets 110, recheck ordered for tomorrow morning postoperatively Anticoagulation per Orthopedic surgery. If DOAC, recommend recheck platelets with PCP 3-5 days Status: Acute (3) Anemia: Problem comment: History of, hgb 12.4 preoperatively. Recheck ordered for tomorrow morning postoperatively. Status: Acute Total Time Spent Total Time Spent: Total time spent caring for the patient today was 45 minutes. This includes time spent for the visit reviewing the chart, time spent during the visit, time spent after the visit and documentation and planning in coordination of care.
[2023-06-23] MEDS: SENNOSIDES 1 TAB TABLET 2 TAB PO (21:22)
--- NOTE | 2023-06-23 22:42 | PC.NURSE ---
End of shift [id number] - Pt alert, oriented, cooperative. Up to bathroom with standby assistance and walker/gait belt. Pt reported pain as 2/10 and indicated adequate management with medication from APR. Denies SOB, nausea, dizziness. Ice pack on surgical site, dressing CDI. Pedal pulse present. Pt contient of bladder. Tolerating RA, regular diet, fluids. Observed to sleep during shift, appears to be resting comfortably at end of shift.
[2023-06-24] MEDS: OXYCODONE 5 MG TABLET PO ×3 (00:35→09:27)
[2023-06-24] MEDS: ACETAMINOPHEN 500 MG TABLET 1000 MG PO ×2 (00:35→06:33)
[2023-06-24 03:00] VITALS: BP 124/74; PULSE 76; RESP 16; TEMP 36; O2SAT 92
--- NOTE | 2023-06-24 05:53 | PC.NURSE ---
[id number] Pt R hip dressing C/D/I, ice applied to site during night, tolerating PO intake, no n/v. Pain 6/10 at beginning of shift, prn oxy administered wtih scheduled tylenol, reassessment of pain pt rated 1/10. bilat pedal pulses present, pt ambulating with walker, GB, SBA, tolerating activity well.
[2023-06-24 06:54] LABS: Hematocrit 33.3 % (33.0-51.0); Hemoglobin* 10.8 gm/dL (12.0-16.0); Immature Granulocytes Abs Auto 0.02 K/uL (0.00-0.30); Immature Granulocytes Pct Auto 0.2 %; Lymphocytes Percent Auto 9.5 % (20-44); Mean Corpuscular HGB Conc 32 gm/dL (32-36); Mean Corpuscular Hemoglobin 30 pg (26-34); Mean Corpuscular Volume 92 fL (80-100); Monocytes Percent Auto 6.4 % (0.0-11.0); Neutrophils Percent Auto 83.9 % (42.0-72.0); Platelet Count* 93 K/uL (140-440); RDW Coefficient of Variation % 13.4 % (11.5-15.5); Red Blood Count 3.62 m/uL (4.00-5.20); White Blood Count* 8.91 K/uL (4.50-11.00)
[2023-06-24 07:00] VITALS: BP 103/55; PULSE 83; RESP 20; TEMP 36.2; O2SAT 96
[2023-06-24 07:03] LABS: Slide Review Reflex No
[2023-06-24 07:05] LABS: Potassium* 4.2 mmol/L (3.6-5.1); Sodium* 135 mmol/L (135-149)
[2023-06-24 07:08] LABS: Creatinine* 0.7 mg/dL (0.5-1.5); Est. Creatinine Clearance* 41.45; Estimated Glomerular Filt Rate 91 ml/min
[2023-06-24 07:09] LABS: Blood Urea Nitrogen* 18 mg/dL (7-30)
[2023-06-24] MEDS: CITALOPRAM HYDROBROMIDE 20 MG TABLET 40 MG PO (09:27)
[2023-06-24] MEDS: SENNOSIDES 1 TAB TABLET 2 TAB PO (09:27)
[2023-06-24] MEDS: RIVAROXABAN 10 MG TABLET PO (09:27)
--- NOTE | 2023-06-24 09:34 | PM.ORPN ---
Subjective Subjective Date Seen: 06/24/23 Principal diagnosis: Status postop day 1, right total hip arthroplasty - anterior approach Interval history: Patient reports doing well. No acute events over night. Pain managed with scheduled and PRN medications, ice. DVT prophylaxis: Rivaroxaban, bilateral knee high Bobby stockings, SCDs, walking. Denies fevers, chills, aches, N/V, CP, SOB/MORRIS, or lightheadedness. Ortho Exam Narrative Exam Narrative: -Patient appears comfortable sitting in bed, working with occupational therapy; no apparent acute distress -Alert and oriented times 3 -Operative hip swollen; soft tissues supple; no obvious erythema. Ecchymosis minimal. Warmth appropriate -Surgical dressing clean, dry, intact; no obvious drainage, no erythematous streaking peripheral to the bandage -Bilateral calves soft and supple; no significant swelling, edema, tenderness, erythema, discoloration, warmth, or palpable cords -2+ DP/PT pulses, intact dermatomes and myotomes distally (5/5 strength). No numbness about the lateral femoral cutaneous nerve distribution. Const Vital Signs, click to edit/add: Vital Signs - 24 hr 06/23/23 09:56 06/23/23 10:00 06/23/23 10:05 Temperature 97.5 F L Pulse Rate 77 75 75 Pulse Rate [Left Pulse Oximeter] Pulse Rate [Right Dorsalis Pedis] Respiratory Rate 16 14 16 Blood Pressure 136/85 132/77 131/95 H Blood Pressure [Right Arm] Pulse Oximetry 93 97 99 Oxygen Delivery Method Room Air Nasal Cannula Oxygen Flow Rate 3 06/23/23 10:10 06/23/23 10:15 06/23/23 10:20 Temperature Pulse Rate 74 75 77 Pulse Rate [Left Pulse Oximeter] Pulse Rate [Right Dorsalis Pedis] Respiratory Rate 16 22 16 Blood Pressure 131/95 H 132/95 H 133/75 Blood Pressure [Right Arm] Pulse Oximetry 99 100 99 Oxygen Delivery Method Oxygen Flow Rate 06/23/23 10:25 06/23/23 10:30 06/23/23 10:42 Temperature 98.1 F 96.6 F L Pulse Rate 73 71 82 Pulse Rate [Left Pulse Oximeter] Pulse Rate [Right Dorsalis Pedis] Respiratory Rate 16 23 14 Blood Pressure 129/72 118/73 128/75 Blood Pressure [Right Arm] Pulse Oximetry 96 94 93 Oxygen Delivery Method Room Air Room Air Room Air Oxygen Flow Rate 06/23/23 10:45 06/23/23 11:00 06/23/23 11:15 Temperature 96.6 F L 96.6 F L 96.6 F L Pulse Rate 74 69 70 Pulse Rate [Left Pulse Oximeter] Pulse Rate [Right Dorsalis Pedis] Respiratory Rate 15 16 16 Blood Pressure 127/70 113/69 111/70 Blood Pressure [Right Arm] Pulse Oximetry 95 93 95 Oxygen Delivery Method Room Air Room Air Room Air Oxygen Flow Rate 06/23/23 11:30 06/23/23 12:00 06/23/23 12:30 Temperature 96.8 F L 96.9 F L 96.7 F L Pulse Rate 78 81 74 Pulse Rate [Left Pulse Oximeter] Pulse Rate [Right Dorsalis Pedis] Respiratory Rate 16 16 16 Blood Pressure 111/64 96/63 97/64 Blood Pressure [Right Arm] Pulse Oximetry 94 94 93 Oxygen Delivery Method Room Air Room Air Room Air Oxygen Flow Rate 06/23/23 13:00 06/23/23 14:00 06/23/23 15:00 Temperature 96.8 F L 97.1 F L 97.0 F L Pulse Rate 73 75 73 Pulse Rate [Left Pulse Oximeter] Pulse Rate [Right Dorsalis Pedis] Respiratory Rate 16 18 18 Blood Pressure 100/67 100/69 94/56 L Blood Pressure [Right Arm] Pulse Oximetry 93 95 94 Oxygen Delivery Method Room Air Room Air Room Air Oxygen Flow Rate 06/23/23 16:00 06/23/23 17:00 06/23/23 21:36 Temperature 97.2 F L 97.1 F L Pulse Rate 77 Pulse Rate [Left Pulse Oximeter] 75 Pulse Rate [Right Dorsalis Pedis] Respiratory Rate 20 16 Blood Pressure 97/56 L 117/78 Blood Pressure [Right Arm] 113/67 Pulse Oximetry 92 93 Oxygen Delivery Method Room Air Room Air Oxygen Flow Rate 06/23/23 23:00 06/24/23 03:00 06/24/23 07:00 Temperature 96.8 F L 97.1 F L Pulse Rate Pulse Rate [Left Pulse Oximeter] 81 76 Pulse Rate [Right Dorsalis Pedis] 83 Respiratory Rate 16 16 20 Blood Pressure Blood Pressure [Right Arm] 115/64 124/74 103/55 L Pulse Oximetry 94 92 96 Oxygen Delivery Method Room Air Room Air Room Air Oxygen Flow Rate 0 0 06/24/23 07:00 Temperature Pulse Rate Pulse Rate [Left Pulse Oximeter] Pulse Rate [Right Dorsalis Pedis] 83 Respiratory Rate 20 Blood Pressure Blood Pressure [Right Arm] Pulse Oximetry Oxygen Delivery Method Oxygen Flow Rate Assessment and Plan Assessment and plan (1) Osteoarthritis of right hip: Problem details: -POD#1 s/p rate ABRAHAM, anterior approach, Dr. Lewis -perioperative management including pain management and anticoagulation per Orthopedic surgery -encourage postoperative pulmonary hygiene -PT OT consults -plan to discharge home with family tomorrow Status: Acute (2) Chronic ITP (idiopathic thrombocytopenia): Problem details: Platelets 110, recheck ordered for tomorrow morning postoperatively Anticoagulation per Orthopedic surgery. If DOAC, recommend recheck platelets with PCP 3-5 days Status: Acute (3) Anemia: Problem details: History of, hgb 12.4 preoperatively. Recheck ordered for tomorrow morning postoperatively. Status: Acute Plan - Complete 23 hour perioperative antibiotics. - PT/OT consult for education and assistance. - Social work consult for discharge planning - Prescribed analgesics as needed - DVT prophylaxis: Rivaroxaban followed by 25 days of 81 mg aspirin twice daily and SCDs - Anticipation is for discharge to home with family/friends 06/24/2023 if the patient remains medically stable, pain is controlled, and they are safe with mobilization.
== END 2023-06-24 12:36 | disposition home or self-care (01) ==
LOC: OR 06:02 → MEDSURG 06:04
PROVIDERS: PCP Physician Assistant Medical; Visit Provider Orthopaedic Surgery Sports Medicine
PROC: (CPT 27130; principal; 2023-06-23 07:15)
DX: M16.11 Unilateral primary osteoarthritis, right hip (principal); G89.18 Other acute postprocedural pain; D69.3 Immune thrombocytopenic purpura; E66.9 Obesity, unspecified; D51.9 Vitamin B12 deficiency anemia, unspecified; F41.8 Other specified anxiety disorders
CPT/HCPCS: 27130; 01214; 36415; 64450; 73501; 76000; 76942; 82565; 84132; 84295; 84520; 85025; 86850; 86900; 86901; 97110; 97116; 97161; 97165; 97530; 97535; 99100; A9270; C1713; C1776; J0690; J1100; J1630; J2250; J2405; J2704; J3010; J3475; J3490; J7120

== ENCOUNTER 2023-07-16 13:45 | Outpatient (RCR) | payer OTHER, SELFPAY ==
--- NOTE | 2023-07-09 14:31 | PT.OPEX ---
PT [facility] Outpatient Eval PT [facility] Outpatient Eval Start: 07/09/23 08:42 Freq: Status: Active Protocol: Document 07/09/23 08:45 ASHELY (Rec: 07/09/23 14:28 ASHELY [id number]) E-signed By Ashly Diop, PT Physical Therapy Outpatient Evaluation Insurance Information Recert Due Date 10/03/23 Insurance Name Other; See Comments Insurance Information/Comments [employer] TFL for life Medical Diagnosis S/P right ABRAHAM DOS 06/23/23 Treating Diagnosis Right hip pain, limited hip ROM, antalgic gait Referring MD Lewis Subjective Subjective Marissa reports to PT s/p 16 days R ABRAHAM. She missed her appointment with orthopedics twice and does not have one scheduled yet. She is hoping to make an appointment to follow up with her PCP about her liver issues but does not have this one scheduled either . Only complaint today is that the front of the thigh and across the knee feels tight ( like a band being pulled). Notes 4/10 hip pain at the worst. She has been ambulating with 4WW and getting up frequently. Denies calf pain, redness, excessive warmth or swelling or streaking, denies chest pain or SOB. She notes the bandage has been pealing off but she has not taken it fully off yet. She has been taking 1 oxycodone every 3-4 days d/t the knee pain (not d/ t hip pain). PMH: Liver cirrhosis Noted, followed by PCP Anemia History of, hgb 12.4 preoperatively. Recheck ordered for tomorrow morning postoperatively. B12 deficiency Depression & anxiety. abstracted [facility] record Thrombocytopenia Anxiety with depression Pain Comments 4/10 worst Date of Last Physician Visit 06/24/23 Current Work Status Retired Objective Other/Pertinent Objective Hip ROM R: -flex 90 -ER 25 -IR 5 -EXT neutral Removed bandage today as bandage has been pealing away on its own since surgery and patient has not been able to follow up with Orthopedics. Incision is covered with surgical glue. No drainage or excessive redness. Overall healing well and no s/s of infection Functional Test Performed & Score LEFS: 1280 Assessment Assessment/Impression Pt presents with signs and symptoms consistent with s/p R ABRAHAM. DOS: 06/23/23. Anticipated deficits/impairments in pain, ROM, and strength. No s/s of infection or DVT. Incision healing well. Able to perform all exercises with moderate fatigue however no chest pain. Pt would benefit from skilled PT interventions to facilitate return to PLOF and ambulating/stair negotiation without AD. Encouraged patient to schedule appointment with orthopedics as well as with her PCP next week. Primary Functional Limitations Walking, standing, squatting, sleeping, sitting Plan of Care Rehabilitation Potential Good Physical Therapy Goals By 4 weeks (08/06/23) Pt will be able to ascend/ descend 1 flight of stairs in order to perform ADLs pain free. Pt will demonstrate full and pain free hip ROM in order to perform all ADLs including don /doffing shoes/socks By 8 weeks (09/03/23) Pt will exhibit 9 pt improvement in LEFS Outcome measure to demonstrate functional improvement and progress towards goals. Pt will tolerate gradual progression back to ADLs with <2/10 pain Patient will transition from walker to cane to independent gait with normal mechanics. Treatment Plan/Direct Interventions Gait Training,Ice/Cold/ Vasopneumatic,Joint Mobilization,Manual Therapy, Neuromuscular Re-ed,Self-Care/ Home Management,Therapeutic Activities,Therapeutic Exercises Frequency/Duration 1x/wk for 4-6 weeks Patient Will Be Discharged From Therapy Completion of LTG(s), Independent w/HEP, Independently Progressing Evaluation Billing Untimed Code Treatment Minutes 15 Complexity Low Certification Information Initial Certification Date 07/09/23 Ending Certification Date 10/03/23 Provider Signature Shows Agreement With POC & Medical Necessity Physician Signature & Date Requested Please Sign/Date Here Physician Comment/Change : Physician NPI Number #
== END 2023-10-12 15:38 | disposition home or self-care (01) ==
PROVIDERS: PCP Physician Assistant Medical; Visit Provider Orthopaedic Surgery Sports Medicine
DX: M16.11 Unilateral primary osteoarthritis, right hip (principal); Z96.641 Presence of right artificial hip joint; M25.551 Pain in right hip; Z74.09 Other reduced mobility; R26.9 Unspecified abnormalities of gait and mobility; Z51.89 Encounter for other specified aftercare
CPT/HCPCS: 97110; 97161

== ENCOUNTER 2024-04-06 11:40 | Outpatient (CLI) | payer OTHER, SELFPAY ==
--- NOTE | 2024-06-13 08:01 | PC.NURSE ---
may 1st appt canceled do to car not working
== END 2024-04-06 11:41 | disposition home or self-care (01) ==
LOC: NFLDREF 04-11 02:49
PROVIDERS: PCP Physician Assistant Medical; Referring Provider Physician Assistant Medical; Visit Provider Physician Assistant Medical
DX: D69.3 Immune thrombocytopenic purpura (principal); R79.89 Other specified abnormal findings of blood chemistry; E53.8 Deficiency of other specified B group vitamins; G89.29 Other chronic pain; F41.8 Other specified anxiety disorders; Z78.0 Asymptomatic menopausal state; Z13.6 Encounter for screening for cardiovascular disorders
CPT/HCPCS: 80053; 80061; 82306; 82607; 84443

== ENCOUNTER 2024-06-08 14:57 | Outpatient (CLI) | payer OTHER, SELFPAY ==
--- NOTE | 2024-06-08 15:30 | XR_ITS ---
Patient: DEE Muñoz FIELD Facility:?[facility] Patient ID:?[id number] Site Patient ID:?[id number]. Site :?[id number] Study:?DEXA-Bone Density Lspine/ Left hip-06/09/2024 1:47:21 PM Ordering Physician:?ARY GARCIA Final Report: XR DXA BONE MINERAL DENSITY (BMD) Current height (in): 63.0. Weight (lb): 244.0. Menopause age: 40. Ethnicity: White. Reason for exam: Asymptomatic menopausal state. 1. Have you had a previous hip or vertebral fracture? No. 2. Have you had any fractures during your adult life which did not result from significant trauma (e.g., auto accident)? No. 3. Did either of your parents have a hip fracture? No. 4. Do you smoke? No. 5. Have you ever taken Glucocorticoids? No. 6. Do you have rheumatoid arthritis? No. 7. Do you have secondary osteoporosis? No. 8. Do you drink 3 or more alcoholic drinks per day? No. 9. Are you being treated for osteoporosis? No. 10. Have you ever taken any of the following medications: Actonel, Evista, Fosamax, Miacalcin, Reclast, Boniva, Forteo, HRT (i.e. estrogen/hormone therapy), Protelos, Prolia, Vitamin D, Calcium, other ? please specify. ANSWER: Yes, vitamin D. 11. Do you have any of the following medical conditions: Anorexia or bulimia, asthma or emphysema, end stage renal disease, hyperparathyroidism, any seizure disorders, cancer, inflammatory bowel diseases, hysterectomy, other ? please specify. ANSWER: No. 12. What was your maximum height (inches)? 63. 13. Do you perform weight bearing exercise regularly? No. 14. Do you regularly consume dairy products? No. 15. Do you drink caffeinated beverages? Yes. 16. At what age did your period start? 16. 17. Are you premenopausal? No. 18. How many full-term pregnancies have you had? 5. 19. Have you ever missed your period for more than 6 months in a row (not including or menopause)? No. TECHNIQUE: Bone mineral density study was performed using the [employer]. FINDINGS: The results of the study expressed as bone mineral density (BMD) are as follows: Lumbar spine L1 to L4: BMD: 0.687 g/cm2. T-score: -3.3. Z-score: -0.9 Neck Left: BMD: 0.542 g/cm2. T-score: -2.8. Z-score: -0.7 Total Left: BMD: 0.693 g/cm2. T-score: -2.0. Z-score: -0.3 IMPRESSION: Osteoporosis. *Comparison exams done prior to 07/2019 were performed on different unit, [employer]. COMPARISON: Compared with scan of 10/12/2019, the bone mineral density has increased by 1.4 percent at the spine and increased by 2.8 percent at the hip. Clay Butler M.D. Diagnostic Radiologist [email or web address] DSM/patrickw: D& Transcribed: 3:22 pm DW/Dictated by: Clay Butler MD @ 06/09/2024 2:59:00 PM (Electronic Signature)
== END 2024-06-08 14:58 | disposition home or self-care (01) ==
LOC: RAD 14:58
PROVIDERS: PCP Physician Assistant Medical; Visit Provider Physician Assistant Medical
DX: Z78.0 Asymptomatic menopausal state (principal); M81.0 Age-related osteoporosis without current pathological fracture
CPT/HCPCS: 77080